=== PATIENT | female | born 1950 | race Caucasian/White ===

== ENCOUNTER 2025-01-28 15:42 | Outpatient (CLI) | payer MEDICARE, OTHER, SELFPAY ==
--- NOTE | 2025-01-28 | DI.US_ITS ---
Exam(s) US CAROTID EXAM: US CAROTID CLINICAL HISTORY: CAROTID BRUIT,R09.89. TECHNIQUE: Ultrasound carotids performed using grayscale, color-flow, and spectral Doppler imaging. COMPARISON: No exams were available for comparison FINDINGS: RIGHT CAROTID ARTERY: Plaque: Scattered foci of calcific plaque along the common carotid artery. Heavy calcified plaque at the common carotid bulb and proximal internal carotid artery causing significant visible stenosis. LEFT CAROTID ARTERY: Plaque: Scattered foci of calcific plaque along the common carotid artery. Calcified plaque at the proximal internal carotid artery causing mild stenosis, less than 50 percent. VERTEBRAL ARTERIES: The right vertebral artery shows antegrade flow. Left vertebral artery shows retrograde flow. Measurements: R Bulb: 100cm/s PS / 21.6cm/s ED R CCA: 101.6cm/s PS / 13.7cm/s ED R ECA: 152.6cm/s PS / 6.6cm/s ED R ICA Prox: 366cm/s PS / 66.3cm/s ED R ICA Mid: 127.6cm/s PS / 19.9cm/s ED R ICA Distal: 109.5cm/s PS /17.6cm/s ED R Vert: 128.3cm/s PS / 24.3cm/s ED R SVR: 3.6 R DVR: 4.8 L Bulb: 102.2cm/s PS / 14.1cm/s ED L CCA: 101.6cm/s PS / 16.3cm/s ED L ECA: 215.4cm/s PS / 0cm/s ED L ICA Prox: 139.9cm/s PS / 29.5cm/s ED L ICA Mid: 158cm/s PS / 25.9cm/s ED L ICA Distal: 104.9cm/s PS / 24cm/s ED L Vert: 13cm/s PS / 1cm/s ED L SVR: 1.6 L DVR: 1.6 IMPRESSION: Heavy calcific plaque at the proximal right internal carotid artery causing approximate 70 percent stenosis. Calcific plaque at the proximal left common carotid artery causing mild stenosis. Flow reversal in the left vertebral artery. Criteria for Carotid Stenosis: Normal: ICA PSV <125 cm/s no plaque or intimal thickening is visible. <50% stenosis: ICA PSV <125 cm/s and plaque or intimal thickening is visible. 50-69% stenosis: ICA PSV is 125-250 cm/s and plaque is visible. >70% stenosis to near occlusion: ICA PSV >250 cm/s with visible plaque and luminal narrowing. DATA REPOSITORY:
--- NOTE | 2025-01-28 14:00 | DI.US_ITS ---
APPROVED REPORT EXAM: Comprehensive 2D, Doppler, and color-flow Echocardiogram Patient Location: Out-Patient [employer] Cabin [employer]er: Mary Kay Vigil RDCS (AE) Indications: Multifocal Tachycardia Other Information Study Quality: Fair. Technically limited study due to body habitus, smoker. Conclusion Mild concentric left ventricular hypertrophy. Ejection fraction is 60 to 65%. Wall motion is normal Normal right ventricular size and function Both atria are normal in size There is no structural or hemodynamically significant valvular disease Trivial pericardial effusion Wall motion Left Ventricle The left ventricle is normal size. Technically limited parasternal imaging, smoker. The left ventricular systolic function is normal. The left ventricular ejection fraction is within the normal range. Mild concentric left ventricular hypertrophy There is normal LV segmental wall motion. There is no ventricular septal defect visualized. LVEF is 60 to 65%. Right Ventricle The right ventricle is normal size. The right ventricular systolic function is normal. Atria The left atrium size is normal. The right atrium size is normal. The interatrial septum is intact with no evidence for an atrial septal defect. Aortic Valve The aortic valve is normal in structure. Aortic valve is trileaflet. There is no aortic valvular stenosis. No aortic regurgitation is present. Mitral Valve The mitral valve is normal in structure. No evidence of mitral valve stenosis. Trace mitral regurgitation. Tricuspid Valve The tricuspid valve is normal in structure. There is no tricuspid valve stenosis. Trace tricuspid regurgitation. Unable to assess PA pressure. Pulmonic Valve The pulmonic valve is grossly normal in structure and function. There is no pulmonic valvular stenosis. There is no pulmonic valvular regurgitation. Great Vessels The aortic root is normal in size. Ascending aorta is not well visualized. Aortic arch is not well visualized. IVC is normal in size and collapses >50% with inspiration. Pericardium Trivial pericardial effusion. 2D Dimensions IVSD d PLAX 0.90 cm F: 0.6-1.0 Ao Root d 2.60 cm F: 2.7 - 3.3 LVPW d PLAX 0.90 cm F: 0.6 - 1.0 LVID d PLAX 4.04 cm F: 3.8 - 5.2 LVDs 2.82 cm F: 2.2 - 3.5 LV EF Teichholz 58.0 % FS 30.16 % LV EDV (Teich) 71.8 mL LV ESV (Teich) 30.1 mL M-Mode TAPSE 1.98 cm (M/F) >1.7 Auto EF LV EDV A4C 74.4 mL LV EDV A2C 97.8 mL LV EDV BP 86.3 mL LV ESV A4C 34.9 mL LV ESV A2C 46.1 mL LV ESV BP 39.9 mL LVEF(%) A4C 53.1 % LVEF(%) A2C 52.8 % LVEF(%) BP 53.7 % LV SV A4C 39.5 ml LV SV A2C 51.7 ml LV SV BP 46.4 ml LV CO A4C 3.7 L/min LV CO A2C 4.7 L/min LV CO BP 4.2 L/min HR A4C 93.51 BPM HR A2C 90.45 BPM LV EDV Index (BP) LA Volume LA Length A4C 3.3 cm LA Length A2C 4.5 cm LA Area A4C s 7.94 cm2 LA Area A2C s 12.31 cm2 LA Vol A4C A-L 16.29 mL LA Vol A2C A-L 28.42 mL LA Vol Biplane A-L 25.3 mL LA Vol/BSA A4C A-L LA Vol/BSA A2C A-L LA Vol/BSA BP A-L 17.1 mL/m2 LA Vol A4C MOD 15.6 mL LA Vol A2C MOD 26.7 mL LA Vol BP MOD 24.0 mL LV Diastology MV E' medial 0.056 (>0.07 m/s) MV E Vmax 0.62 (0.4-1.3 m/s) MV E/E' MED 11.01 (<14) MV A Vmax 0.80 (0.4-1.3 m/s) MV E' lateral 0.061 (>0.1 m/s) E/A Ratio 0.8 MV E/E' LAT 10.20 (<14) MV E' Average 0.058 m/s MV E/E'(average) 10.58 Aortic Valve AoV Vmax 1.15 m/s LVOT Vmax 0.92 m/s AoV Peak Grad 5.3 mmHg LVOT Peak Grad 3.4 mmHg AoV Area (Vmax) 2.71 cm2 LVOT VTI 0.226 m AoV VTI 0.268 m LVOT Mean Grad 2.2 mmHg AoV Mean Adrien. 0.83 m/s LVOT SV 76.68 mL AoV Mean Grad 3.1 mmHg LVOT Diam s 2.05 cm AoV Area (VTI) 2.86 cm2 AV Regurg Peak Gr. 5.32 mmHg Velocity Ratio 0.80 Mitral Valve MV DT 253 (160-240 msec) MV Vmax TIPS 0.80 m/s MV Mean Grad 1.5 (<2mmHg) MV VTI 0.182 m Pulmonary Valve PV Vmax 1.81 (0.5-1.5 m/s) RVOT Vmax 1.38 m/s PV Peak Grad 13.1 mmHg RVOT Peak Gr. 7.6 mmHg PV Mean Adrien 1.07 m/s RVOT VTI 0.241 m PV Mean Grad 5.6 mmHg RVOT Mean Gr. 5.5 mmHg Tricuspid Valve RA Pressure 3.00 mmHg TV S' 0.10 m/s
== END 2025-01-28 16:02 ==
LOC: DI 15:42
PROVIDERS: PCP Nurse Practitioner; Visit Provider Internal Medicine Cardiovascular Disease
DX: I47.19 Other supraventricular tachycardia (principal); R09.89 Other specified symptoms and signs involving the circulatory and respiratory systems
CPT/HCPCS: 93306; 93880